=== PATIENT | male | born 1955 | race Caucasian/White ===

== ENCOUNTER 2016-10-26 06:43 | Day surgery (SDC) | payer BC ==
--- NOTE | ~2016-10-26 | EGD ---
EGD REPORT [facility] [address] [place]. [place] [address] NAME: SALMA SCHMITZ JR : 59 [place] [facility] [place] [id number] AGE: 61 ADM/REG DATE : 10/26/16 MR#: [id number] REPORT SERV DATE: 10/26/16 DICTATED BY: MICHAEL RAZA DATE: 10/26/16 REPORT STATUS : Draft TRANSCRIBED BY: [facility] DATE: 10/26/16 Endoscopy Center Patient Name: Salma Schmitz Date of : 1955 Attending MD: MICHAEL RAZA MD Procedure Date No Time: 10/26/2016 Procedure: Colonoscopy Indications: Screening in patient at increased risk: Colorectal cancer in father before age 60, Last colonoscopy: December 2010 Referring MD: BELLA MOFFETT Medicines: Propofol per Anesthesia Complications: No immediate complications. Estimated blood loss: None. Procedure: Pre-Anesthesia Assessment: - After reviewing the risks and benefits, the patient was deemed in satisfactory condition to undergo the procedure. - Prior to the procedure, a History and Physical was performed, and patient medications and allergies were reviewed. The patient's tolerance of previous anesthesia was also reviewed. The risks and benefits of the procedure and the sedation options and risks were discussed with the patient. All questions were answered, and informed consent was obtained. Prior Anticoagulants: The patient has taken no previous anticoagulant or antiplatelet agents. ASA Grade Assessment: II - A patient with mild systemic disease. After reviewing the risks and benefits, the patient was deemed in satisfactory condition to undergo the procedure. After I obtained informed consent, the scope was passed under direct vision. Throughout the procedure, the patient's blood pressure, pulse, and oxygen saturations were monitored continuously. The CF [id number] was introduced through the anus and advanced to the cecum, identified by appendiceal orifice and ileocecal valve. The colonoscopy was performed without difficulty. The ileocecal valve and appendiceal orifice were photographed. The patient tolerated the procedure well. The quality of the bowel preparation was adequate to identify polyps 6 mm and larger in size. The bowel preparation used was HalfLytely. Scope withdrawal time was greater than 9 minutes. Findings: The perianal and digital rectal examinations were normal. Pertinent EGD REPORT [address] [address] NAME: SALMA SCHMITZ JR : 59 [place] [facility] [place] [place] [id number] AGE: 61 ADM/REG DATE : 10/26/16 MR#: [id number] REPORT SERV DATE: 10/26/16 DICTATED BY: MICHAEL RAZA DATE: 10/26/16 REPORT STATUS : Draft TRANSCRIBED BY: [employer] DATE: 10/26/16 negatives include normal sphincter tone. Non-bleeding internal hemorrhoids were found during retroflexion and were medium-sized and Grade I (internal hemorrhoids that do not prolapse). A few small-mouthed diverticula were found in the sigmoid colon. A sessile polyp was found in the transverse colon. The polyp was 6 mm in size. The polyp was removed with a cold snare. Resection and retrieval were complete. Estimated blood loss: none. The exam was otherwise without abnormality. Impression: - Non-bleeding internal hemorrhoids. - Mild diverticulosis in the sigmoid colon. - One 6 mm polyp in the transverse colon. Resected and retrieved. - The examination was otherwise normal. Recommendation: - Discharge patient to home (ambulatory). - High fiber diet indefinitely. - Continue present medications. - Await pathology results. - Repeat colonoscopy in 5 years for screening purposes and for surveillance. - Patient has a contact number available for emergencies. The signs and symptoms of potential delayed complications were discussed with the patient. Return to normal activities tomorrow. Written discharge instructions were provided to the patient. Procedure Code(s): --- Professional --- 50995, Colonoscopy, flexible, proximal to splenic flexure; with removal of tumor(s), polyp(s), or other lesion(s) by snare technique Diagnosis Code(s): --- Professional --- K64.0, First degree hemorrhoids K57.30, Diverticulosis of large intestine without perforation or abscess without bleeding D12.3, Benign neoplasm of transverse colon Z12.11, Encounter for screening for malignant neoplasm of colon Z80.0, Family history of malignant neoplasm of digestive organs CPT copyright 2013 [employer]. All rights reserved. The codes documented in this report are preliminary and upon hose seamer review may EGD REPORT [facility] [address] [id number] NAME: SALMA SCHMITZ : [birth year] [place] [facility] [place] [place] [id number] AGE: 61 ADM/REG DATE : 10/26/16 MR#: [id number] REPORT SERV DATE: 10/26/16 DICTATED BY: MICHAEL RAZA. DATE: 10/26/16 REPORT STATUS : Draft TRANSCRIBED BY: [employer] DATE: 10/26/16 be revised to meet current compliance requirements. MICHAEL RAZA MD 10/26/2016 8:24 AM This report has been signed electronically. Number of Addenda: 0 Note Initiated On: 10/26/2016 7:54 AM Scope Withdrawal Time 0 hours 11 minutes 17 seconds [address] [id number]
[~2016-10-26 06:43] MED LIST: ACID REFLUX MED; MICARDIS HCT PO; MICARDIS80 PO; NEXIUM20 M1 PO; NORV5 PO; PRILO PO; SYN125 PO; UNKNOWN BP MED
== END 2016-10-26 23:59 | disposition home or self-care (01) ==
LOC: DMU 06:43
PROVIDERS: Internal Medicine Gastroenterology
PROC: 0DBL8ZZ Excision of Transverse Colon, Via Natural or Artificial Opening Endoscopic (ICD-10-PCS; principal; 2016-10-26 08:00)
DX: Z12.11 Encounter for screening for malignant neoplasm of colon (principal); D12.3 Benign neoplasm of transverse colon; K64.0 First degree hemorrhoids; K57.30 Diverticulosis of large intestine without perforation or abscess without bleeding; I10 Essential (primary) hypertension; E03.9 Hypothyroidism, unspecified; G47.33 Obstructive sleep apnea (adult) (pediatric); M10.9 Gout, unspecified; F41.9 Anxiety disorder, unspecified; Z98.1 Arthrodesis status; Z80.0 Family history of malignant neoplasm of digestive organs; Z91.041 Radiographic dye allergy status; Z90.89 Acquired absence of other organs; Z86.010 Personal history of colon polyps; Z85.850 Personal history of malignant neoplasm of thyroid; Z79.899 Other long term (current) drug therapy; Z98.890 Other specified postprocedural states
CPT/HCPCS: 88305